=== PATIENT | female | born 1965 | race Two or more races ===

== ENCOUNTER 2018-04-27 04:54 | Emergency (ER) | payer OTHER ==
[~2018-04-27] VITALS: Ht 160 cm; Wt 82.6 kg
[~2018-04-27 04:54] MED LIST: BENADRYL50 MG PO; CEFADROXIL500 MG PO; PREDNISONE5 MG/DOSE- PO
[2018-04-27] MEDS ORDERED: CLEOCIN HCL300 MG PO (08:32)
[2018-04-27] MEDS ORDERED: KETO10TA2 PO (08:32)
[2018-04-27] MEDS ORDERED: INTESTINEX680 M1 PO (08:32)
== END 2018-04-27 08:47 | disposition home or self-care (01) ==
LOC: ER 04:54
DX: N61.1 Abscess of the breast and nipple (principal)